=== PATIENT | male | born 1950 | race Caucasian/White ===

== ENCOUNTER → 2017-01-24 | Day surgery (SDC) | payer MEDICARE, OTHER ==
[~2017-01-24] VITALS: Ht 175.3 cm; Wt 95.2 kg
[~2017-01-24] MED LIST: ASPI-973 PO; SIMV20TA4 PO; Sodium Chloride LOK Flush 10 mL Syringe IV PRN; fentaNYL-PF 50 mCg/mL 2 mL Inj IVPUSH PRN
[2017-01-24 08:58] VITALS: BP 137/82; PULSE 58; RESP 16; O2SAT 94
[2017-01-24] MEDS: 0.9% Sodium Chloride 1,000 ML IV SCH ×2 (09:43→09:51)
[2017-01-24 09:59] VITALS: BP 115/84; PULSE 58; O2SAT 95
[2017-01-24 10:10] VITALS: BP_SYST 115; BP_SYST 129; BP_DIAS 77; BP_DIAS 84; PULSE 63; RESP 16; O2SAT 95
--- NOTE | 2017-01-24 10:29 | ENDO ---
[address] [address] ENDOSCOPY PROCEDURE PATIENT: AYDEE MENDEZ : 1950 MR#: [id number] ADMIT: 01/24/2017 JOB ID: [id number] DATE: 01/24/2017 PRIMARY PROVIDER: Krishna Aquino MD PROCEDURE: Colonoscopy. INDICATIONS: A 66-year-old male who reports for colon cancer screening. EQUIPMENT: PCF-H180-AL. SEDATION: 3 mg Versed, 75 mcg fentanyl. COMPLICATIONS: None identified. BOWEL PREPARATION: Very adequate. PROCEDURE INFORMATION: After the risks and benefits were explained, written and verbal informed consent was obtained. The patient was brought into the endoscopy suite and placed into the left lateral decubitus position. Sedation was achieved using the above-stated medications with the addition of oxygen via nasal cannula. Digital rectal examination was accomplished. No significant pathology appreciated. The scope was introduced into the rectum and advanced to the cecum as identified by the appendiceal orifice and ileocecal valve. The scope was slowly withdrawn to carefully examine the mucosa for any defects or lesions. Retroflexed views were accomplished in the rectum. The colon was decompressed, the scope removed from the patient who tolerated the procedure well. FINDINGS: No significant polyps, mass lesions, or inflammatory features identified throughout. Retroflexed views were unremarkable. ENDOSCOPIC DIAGNOSIS: Visually normal colonoscopy to cecum. RECOMMENDATIONS: Repeat colonoscopy in 10 years' time, sooner should symptoms warrant an earlier exam.
== END | disposition home or self-care (01) ==
LOC: END 01:16
PROVIDERS: ATTEND Internal Medicine Gastroenterology
DX: Z12.11 Encounter for screening for malignant neoplasm of colon (principal); Z83.71 Family history of colonic polyps; E78.00 Pure hypercholesterolemia, unspecified; Z79.82 Long term (current) use of aspirin
CPT/HCPCS: G0105; G0500; J2250; J3010; J7030